=== PATIENT | female | born 1955 | race Caucasian/White ===

== ENCOUNTER 2017-07-21 07:12 | Day surgery (SDC) | payer OTHER ==
[~2017-07-21] VITALS: Ht 149.9 cm; Wt 73.1 kg
[2017-07-21 08:10] VITALS: Ht 149.9 cm; Wt 73.1 kg
[2017-07-21] MEDS ORDERED: LISINOPRIL PO (08:13)
[2017-07-21] MEDS ORDERED: ASPI-535 PO (08:13)
[2017-07-21 08:46] VITALS: BP 140/83; PULSE 52; RESP 12
[2017-07-21 09:28] VITALS: BP 86/54; PULSE 73; RESP 24
--- NOTE | 2017-07-21 09:32 | OPPN ---
Date/Time of Note Date/Time of Note DATE: 07/21/17 TIME: 09:29 Operative Report Preoperative Diagnosis Screening Postoperative Diagnosis Sigmoid polyp was removed using the snare and electrocautery Rectal polyp was removed using biopsy forceps Diverticulosis of the colon Internal hemorrhoids Operation/Procedure Performed Colonoscopy biopsy and polypectomy Surgeon see signature line assistant federal public defender None Anesthesia: MAC Estimated blood loss: none Transfusion Required none Specimen Colon polyps Grafts/Implants none Complications none ROBB MACHADO MD Jul 21, 2017 09:31
--- NOTE | 2017-07-21 09:32 | OPPN ---
Date/Time of Note Date/Time of Note DATE: 07/21/17 TIME: 09:29 Operative Report Preoperative Diagnosis Screening Postoperative Diagnosis Sigmoid polyp was removed using the snare and electrocautery Rectal polyp was removed using biopsy forceps Diverticulosis of the colon Internal hemorrhoids Operation/Procedure Performed Colonoscopy biopsy and polypectomy Surgeon see signature line pastrycook's assistant None Anesthesia: MAC Estimated blood loss: none Transfusion Required none Specimen Colon polyps Grafts/Implants none Complications none ROBB MACHADO MD Jul 21, 2017 09:31
--- NOTE | 2017-07-21 09:32 | OPPN ---
Date/Time of Note Date/Time of Note DATE: 07/21/17 TIME: 09:29 Operative Report Preoperative Diagnosis Screening Postoperative Diagnosis Sigmoid polyp was removed using the snare and electrocautery Rectal polyp was removed using biopsy forceps Diverticulosis of the colon Internal hemorrhoids Operation/Procedure Performed Colonoscopy biopsy and polypectomy Surgeon see signature line machine operator assistant None Anesthesia: MAC Estimated blood loss: none Transfusion Required none Specimen Colon polyps Grafts/Implants none Complications none ROBB MACHADO MD Jul 21, 2017 09:31
[2017-07-21] MEDS ORDERED: PROPOFOL 60 ML ONE (09:36)
[2017-07-21 10:06] VITALS: BP 106/64; RESP 14
--- NOTE | 2017-07-22 08:39 | GILP ---
DATE OF PROCEDURE: NAME OF PROCEDURES: Colonoscopy, biopsy and polypectomy. SURGEON: Savanna Rodriguez MD. PREOPERATIVE DIAGNOSIS: Screening colonoscopy. POSTOPERATIVE DIAGNOSES: 1. Colonoscopy all the way to the cecum. 2. Sigmoid polyp was removed using the snare and electrocautery. 3. Rectal polyp was removed using the biopsy forceps. 4. Diverticulosis of the colon. 5. Internal hemorrhoids. INDICATION FOR THE PROCEDURE: Ms. Jessica Pandey is a 61-year-old female patient who was raul eduled for screening colonoscopy. The procedure and possible complications are well explained to the patient. The patient understood and consented to the procedure. DESCRIPTION OF PROCEDURE: Under the influence of anesthesia, the colonoscope was carefully introduc ed in the rectum, and under direct vision, it was advanced all the way to the cecum. FINDINGS: The patient had a sigmoid colon polyp and it was removed using the snare and electrocaute ry. She had rectal polyp and it was removed using the biopsy forceps. She was noted to have divert iculosis of the colon and internal hemorrhoids. She tolerated the procedure very well and there was no complication from the procedure. At the end of the procedure, she was awake with stable vital signs and she was discharged home to the care of h er family. IMPRESSION: Please see postoperative diagnoses. PLAN: 1. Await histopathology report. 2. Next screening colonoscopy in 5 years. 3. Advised high fiber diet. Dictated By: SAVANNA VALDEZ/YAHAIRA Conf#: [id number] DID#: [id number]
== END 2017-07-21 10:16 | disposition home or self-care (01) ==
LOC: GIL 07:12
PROVIDERS: ATTEND Internal Medicine Gastroenterology
DX: Z12.11 Encounter for screening for malignant neoplasm of colon (principal); K62.1 Rectal polyp; D12.5 Benign neoplasm of sigmoid colon; I10 Essential (primary) hypertension
CPT/HCPCS: 45380; 88305; Z7610